=== PATIENT | male | born 1960 | race Caucasian/White ===

== ENCOUNTER 2018-09-28 08:59 | Outpatient (CLI) | payer BC ==
--- NOTE | 2018-09-28 09:35 | RAD ---
PA AND LATERAL CHEST: History: Hypertension. FINDINGS: Comparison made with exam of 10-29-11. The heart size is normal. The lungs are expanded without focal a reas of consolidation, pneumothoraces or pleural effusions. There are degenerative changes in the spi ne. IMPRESSION: No radiographic evidence of acute cardiopulmonary process. POS: OFF
== END 2018-09-28 09:00 | disposition home or self-care (01) ==
LOC: RAD-FRANK 08:59
PROVIDERS: ATTEND Nurse Practitioner Family
DX: Z00.01 Encounter for general adult medical examination with abnormal findings (principal); I10 Essential (primary) hypertension
CPT/HCPCS: 71046